=== PATIENT | male | born 1980 | race Caucasian/White ===

== ENCOUNTER 2021-09-26 20:00 | Emergency (ER) | payer SELFPAY ==
--- NOTE | 2021-09-26 20:58 | PC.NURSE ---
pt LWBS [id number]
== END 2021-09-26 20:46 | disposition left against medical advice (07) ==
LOC: CHSED 09-27 10:33
PROVIDERS: Emergency Provider Emergency Medicine; PCP Family Medicine
DX: Z04.9 Encounter for examination and observation for unspecified reason (principal)
CPT/HCPCS: 99199

== ENCOUNTER 2022-04-12 09:10 | Emergency (ER) | payer OTHER, SELFPAY ==
--- NOTE | ~2022-04-12 | XR_ITS ---
EXAMINATION: XR chest 2V DATE: 04/12/2022 09:41 INDICATION: Left chest pain. TECHNIQUE: Frontal and lateral views of the chest were obtained. COMPARISON: CT abdomen and pelvis 07/03/2017 FINDINGS: The chest demonstrates clear lungs without pneumonia, pleural effusion, or pneumothorax. Th e heart size is normal. IMPRESSION: 1. No acute cardiopulmonary disease. Reviewed, dictated and finalized at location A. 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
[2022-04-12 09:10] VITALS: PULSE 66
[2022-04-12 09:12] VITALS: BP 120/81; PULSE 66; RESP 18; TEMP 36.8; O2SAT 99
--- NOTE | 2022-04-12 09:25 | ECG_ITS ---
Measurements Intervals [place] Rate: 62 P: 81 [place]: 156 QRS: 93 QRSD: 93 T: 71 QT: 374 QTc: 382 Interpretive Statements SINUS RHYTHM RIGHT AXIS DEVIATION BORDERLINE ECG NO PREVIOUS ECG AVAILABLE FOR COMPARISON Electronically Signed On 04-12-2022 13:17:12 COMPUTER TRAINING SPECIALIST by Jose Guadalupe Johnson D.O.
--- NOTE | 2022-04-12 09:38 | ED.CHESTPAIN ---
HPI - Chest Pain General Chief Complaint: Chest Pain Stated Complaint: chest pain Time Seen by Provider: 04/12/22 09:14 History of Present Illness HPI narrative: This is a 41-year-old male who denies past medical history, presenting to the emergency department complaining of 1-1/2 days worth of sharp, left-sided chest pain. The pain is described as a sharp twinge lasting 1 to 2 seconds and resolving completely on its own. He states that it is always just below the left nipple and does not radiate. He denies associated nausea, shortness of breath or lightheadedness. Related Data Home Medications Medication Instructions Recorded Confirmed No Home Medications 04/12/22 04/12/22 Allergies Allergy/AdvReac Type Severity Reaction Status Date / Time No Known Allergies Allergy Verified 04/12/22 09:54 Review of Systems Review of Systems: CONSTITUTIONAL: Denies fever, chills, or sweats. CARDIOVASCULAR: Left-sided chest pain denies palpitations, or edema. RESPIRATORY: Denies cough or dyspnea. GASTROINTESTINAL: Denies abdominal pain, nausea, vomiting, or diarrhea. GENITOURINARY: Denies dysuria or hematuria. SKIN: Denies rash or itching. MUSCULOSKELETAL: Denies back pain, joint pain, or myalgia. NEUROLOGIC: Denies headache, numbness, dizziness, or weakness. PSYCHIATRIC: Denies anxiety or depression. [facility] Social History Social History (Updated 04/12/22 @ 11:10 by Juan A Armas MD) Smoking status: Never smoker Alcohol intake: never Substance use: never Exam Narrative: GENERAL: Well-developed, well-nourished, and in no acute distress. HEAD: Normocephalic, atraumatic. EYES: PERRLA and EOMI. ENT: Nares clear, no rhinorrhea or epistaxis. Mucous membranes moist. Bilateral TMs pearly irvin nonbulging CHEST: Clear to auscultation. No respiratory distress. No wheezes rales or rhonchi. No tenderness to palpation of the anterior chest wall. HEART: Regular rate and rhythm. No murmur heard. Normal peripheral pulses. ABDOMEN: Soft, nontender, nondistended, normal active bowel sounds. EXTREMITIES: Normal range of motion. No edema. SKIN: Warm, dry, no rash. NEURO: No focal deficits. Alert and oriented x3. PSYCH: Normal mood and affect. Course Course Emergency Course: 10:43 - HEART score 0. EKG not concerning for ischemic changes. Troponin negative. I suspect a musculoskeletal cause for the patient's pain. Discussed findings and recommendations for management with NSAIDs. Discussed return emergency precautions including signs/symptoms of ACS and respiratory distress. The patient voiced understanding and is comfortable with plan. All questions answered to his satisfaction Vital Signs Vital signs: Vital Signs Pulse Rate 66 04/12/22 09:10 Oxygen Delivery Room Air 04/12/22 09:10 Temperature 98.1 F 04/12/22 10:49 Pulse Rate 66 04/12/22 10:49 Respiratory Rate 18 04/12/22 10:49 Blood Pressure 122/82 04/12/22 10:49 Pulse Oximetry 99 04/12/22 10:49 Oxygen Delivery Room Air 04/12/22 10:49 MDM - Chest Pain MDM Narrative Medical decision making narrative: Plan: Labs, imaging, EKG, reassess Differential Diagnosis Differential diagnosis: Likely atypical chest pain, costochondritis and other (ACS, pleurisy, other) Lab Data Labs: Lab Results 04/12/22 Range/Units 09:44 Troponin I < 4.0 (0.00-60.4) ng/L ECG Data EKG #1: Attestation: I personally reviewed and interpreted this ECG as follows: ECG completion date: 04/12/22 ECG completion time: 10:08 Prior ECG tracings: not available for review Interpretation: Sinus rhythm, rate 62, normal axis, no ST segment elevations or T wave inversions concerning for ischemia, normal intervals with QTc of 308. Discharge Plan Discharge Clinical Impression: Atypical chest pain Patient Disposition: Home, Self-Care Condition: Stable Instructions: Antibiotic Form, Chest Wall Pain (ED) Add
--- NOTE | 2022-04-12 10:14 | PC.NURSE ---
PT IS SITTING ON STRETCHER VSS. NAD NOTED. PT DENIES ANY COMPLAINTS AT THIS TIME. PT IS AWAITING RESULTS. WILL CONTINUE TO MONITOR.
[2022-04-12 10:24] LABS: Troponin I < 4.0 ng/L (0.00-60.4)
[2022-04-12 10:49] VITALS: BP 122/82; PULSE 66; RESP 18; TEMP 36.7; O2SAT 99
== END 2022-04-12 11:00 | disposition home or self-care (01) ==
PROVIDERS: Emergency Provider Preventive Medicine Aerospace Medicine; PCP Family Medicine
DX: R07.89 Other chest pain (principal)
CPT/HCPCS: 36415; 71046; 84484; 93005; 99283

== ENCOUNTER 2022-06-11 23:55 | Emergency (ER) | payer OTHER, SELFPAY ==
--- NOTE | ~2022-06-11 | XR_ITS ---
EXAMINATION: XR chest 1V portable DATE: 06/12/2022 00:35 INDICATION: Chest pain. Cough. TECHNIQUE: A single frontal view of the chest was obtained. COMPARISON: Chest 2 views 04/12/2022 FINDINGS: There is no pneumonia, pleural effusion, or pneumothorax. The heart size is normal. IMPRESSION: 1. No acute cardiopulmonary disease. Reviewed, dictated and finalized at location A.
[2022-06-11 23:57] VITALS: BP 135/85; PULSE 67; RESP 20; TEMP 36.4; O2SAT 100
--- NOTE | 2022-06-12 00:03 | ECG_ITS ---
Measurements Intervals [place] Rate: 65 P: 74 CT: 153 QRS: 83 QRSD: 91 T: 66 QT: 356 QTc: 371 Interpretive Statements SINUS RHYTHM INCOMPLETE RIGHT BUNDLE BRANCH BLOCK BASELINE ARTIFACT- II, AVR, AVL, AVF, V1-V6 BORDERLINE ECG COMPARED TO ECG 04/12/2022 10:08:01 NO SIGNIFICANT CHANGES Electronically Signed On 06-12-2022 8:04:20 CDT by Jose Guadalupe Johnson D.O.
[2022-06-12 00:05] VITALS: RESP 20; O2SAT 95
--- NOTE | 2022-06-12 00:20 | ED.GENADULT ---
HPI - General Adult General Chief complaint: Unspecified Stated complaint: tooth pain History of Present Illness HPI narrative: this is a 41-year-old male presenting to the ED with a chief complaint of tooth pain. Patient was scheduled to have several teeth pulled last week. His appointment was pushed back until next week. Yesterday he started develop pain underneath his lower incisors. He has had pain like this before and has been treated with antibiotics. Then earlier today he developed a cough and burning chest pain that went from his throat down the center of his chest. Pain is associated with his cough, 2/ 10 intensity and constant. Says he has felt like this before right before he gets sick. There is no alleviating or exacerbating symptoms. He has not taken any medication prior to arrival. He denies fever chills, nausea, vomiting, shortness of breath, diarrhea,or abdominal pain. Related Data Allergies Allergy/AdvReac Type Severity Reaction Status Date / Time No Known Allergies Allergy Verified 06/12/22 00:08 [facility] Social History Social History (Updated 04/12/22 @ 11:10 by Juan A Armas MD) Smoking status: Never smoker Alcohol intake: never Substance use: never Exam Narrative: APPEARANCE: No apparent distress. Head: Patient has poor dentition multiple severely decayed teeth. No evidence of abscess. No evidence of potential infection. Floor of the mouth is soft. EYES: EOMI, NOSE: Atraumatic NECK: Trachea midline RESPIRATORY: No increased rate of breathing , scattered wheezing CARDIOVASCULAR: RRR, no peripheral edema ABDOMINAL: Non-distended, soft nontender no guarding rebound MUSCULOSKELETAl: No obvious deformities NEURO: Alert. Moving 4/4 extremities SKIN:: Warm, dry. Normal color PSYCHIATRIC: Normal affect Course Vital Signs Vital signs: Vital Signs Temperature 97.6 F 06/11/22 23:57 Pulse Rate 67 06/11/22 23:57 Respiratory Rate 20 06/11/22 23:57 Blood Pressure 135/85 06/11/22 23:57 Pulse Oximetry 100 06/11/22 23:57 Temperature 97.6 F 06/11/22 23:57 Pulse Rate 67 06/11/22 23:57 Respiratory Rate 20 06/12/22 00:05 Blood Pressure 135/85 06/11/22 23:57 Pulse Oximetry 95 06/12/22 00:05 Medical Decision Making [facility] Narrative Medical decision making narrative: -Presentation: 41-year-old male with poor dentition presenting with 2 complaints: tooth pain and cough/burning chest discomfort cough and wheezing. I don't believe these complaints are related. Patient has very poor dentition but there is no sign of active infection/abscess on exam. Viral/strep swabs, chest xray, ekg and labwork ordered. Patient given Motrin, Tylenol, and breathing treatment. -DDX includes but is not limited to: Dental pain, dental infection / URI, bronchitis, pneumonia, -Co-morbidities complicating care: Poor dentition, chronic smoker -Social determinants of health: patient works for the [employer] and lives with his . -External Chart Review: review an ER visit last month for chest pain -Independent interpretation of studies: Independent EKG interpretation: Rhythm [sinus], Rate [65], [place] -[normal], [place] -[normal], QRS [narrow], QTC [normal], T waves -[negative for concerning inversions], ST Segments - [Negative for concerning elevations] Final interpretations: [Normal Sinus Rhythm] chest x-ray showed no acute cardiopulmonary process. Laboratory studies were within acceptable limits. HS Trop 4.7. chest pain started > 3 hrs prior to arrival. no rpt neccessary. Heart score 0 -Interventions: DuoNeb treatment, Motrin, Tylenol -Shared decision making / Disposition: Upon re-evaluation patient is resting comfortably. States his condition improved after the duonebs. He is comfortable being discharged home on Augmentin for his dental pain and following up with his dentist/PCP as needed. -RX Augmentin, Motrin, Tylenol, albuterol inhaler Vital Signs
[2022-06-12 00:49] LABS: Basophils Absolute Auto 0.08 K/mm3 (0.00-0.10); Basophils Percent Auto 0.8 % (0.0-1.0); Eosinophils Absolute Auto 0.24 K/mm3 (0.02-0.50); Eosinophils Percent Auto 2.5 % (1.0-6.0); Hemoglobin 15.9 g/dL (14.0-18.0); Immature Granulocyte Absolute 0.03 K/mm3 (0.00-0.00); Immature Granulocyte Percent A 0.3 % (0.0-0.0); Lymphocytes Absolute Auto 2.66 K/mm3 (1.10-4.50); Mean Corpuscular HGB Conc 33.8 g/dL (32.0-36.0); Mean Corpuscular Hemoglobin 30.8 pg (27.0-31.0); Mean Corpuscular Volume 90.9 fL (78.0-102.0); Mean Platelet Volume 9.6 fl (8.7-11.0); Monocytes Absolute Auto 0.61 K/mm3 (0.10-0.90); Monocytes Percent Auto 6.4 % (2.0-11.0); Neutrophils Absolute Auto 5.9 K/mm3 (1.7-7.2); Platelet Count Result 204 K/mm3 (150-420); Red Blood Count 5.17 M/mm3 (4.70-6.10); Red Cell Distribution Width 12.9 % (11.6-14.4); White Blood Count 9.5 K/mm3 (4.8-10.8)
[2022-06-12] MEDS: IPRATROPIUM 0.5 MG/ALBUTEROL SULFATE 2.5 MG AMPUL.NEB 3 ML 6 ML INHALATION (00:53)
[2022-06-12 00:54] VITALS: PULSE 58; RESP 16; O2SAT 96
[2022-06-12 00:58] VITALS: PULSE 63; RESP 16; O2SAT 96
[2022-06-12 01:06] LABS: Anion Gap 8 mmol/L (8-16); Blood Urea Nitrogen 17 mg/dL (7-18); Calcium 8.7 mg/dL (8.5-10.1); Carbon Dioxide 30 mmol/L (21-32); Chloride 104 mmol/L (98-108); Estimated CRCL calculation 73 ml/min; Estimated Glomerular Filt Rate > 60; Glucose 96 mg/dL (70-99); Osmolality Calculated 295 mOsm/kg (285-295); Potassium 3.8 mmol/L (3.5-5.1); Sodium 142 mmol/L (136-145); Troponin I 4.7 ng/L (0.00-60.4)
[2022-06-12 01:22] LABS: Strep Group A RT-PCR NOT DETECTED (Negative)
[2022-06-12 01:29] LABS: Influenza A QL RT-PCR Negative (Negative); Influenza B QL RT-PCR Negative (Negative); RSV RNA, RT-PCR Negative (Negative); SARS-CoV-2 RNA PCR Negative (Negative)
[2022-06-12 01:47] VITALS: BP 121/81; PULSE 88; RESP 20; TEMP 36.7; O2SAT 99
== END 2022-06-12 01:48 | disposition home or self-care (01) ==
PROVIDERS: Emergency Provider Emergency Medicine; PCP Family Medicine
DX: K02.9 Dental caries, unspecified (principal); J40 Bronchitis, not specified as acute or chronic; Z20.822 Contact with and (suspected) exposure to COVID-19
CPT/HCPCS: 36415; 71045; 80048; 84484; 85025; 87637; 87651; 93005; 94640; 99284

== ENCOUNTER 2022-06-12 17:12 | Emergency (ER) | payer OTHER, SELFPAY ==
[2022-06-12 17:15] VITALS: BP 136/89; PULSE 91; RESP 16; TEMP 36.6; O2SAT 99
--- NOTE | 2022-06-12 17:24 | ED.GENADULT ---
HPI - General Adult General Chief complaint: Upper Respiratory Infection Stated complaint: fever, throat pain, burning in chest Time Seen by Provider: 06/12/22 17:16 History of Present Illness HPI narrative: Roberto is a 41M with a PMH of of dental caries that is returning to the ED with continued symptoms. He was discharged earlier today with script for Augmentin for dental caries and was diagnosed with bronchitis. He went to take his first dose of Augmentin just before coming but had trouble swallowing the pill. He continued to have some burning in his chest and a cough and thought he spiked a fever up to 102, however it is normal here. He denies any pressure type chest pain or dyspnea. Related Data Allergies Allergy/AdvReac Type Severity Reaction Status Date / Time No Known Allergies Allergy Verified 06/12/22 17:30 Review of Systems Review of Systems: All systems reviewed & are unremarkable except as noted in HPI and below PMFSH Social History Social History Smoking status: Never smoker Alcohol intake: never Substance use: never Exam Const: General: healthy appearing and no acute distress Nutritional Appearance: well nourished Orientation/consciousness: patient oriented x3 HENMT: Head: normal to inspection Ears: external ears normal Face/Nose/Sinus: Normal external nose present Eyes: Conjunctivae: conjunctivae normal Pupils: Equal, round and reactive pupils present Neck: Neck: normal visual inspection Chest: Chest palpation & inspection: normal inspection of the chest Resp: Effort & Inspection: normal respiratory effort Auscultation: clear to auscultation bilaterally Cardio: Rate: regular rate Rhythm: regular rhythm Skin: General skin exam: normal color Rashes: no rashes Wounds: no wounds Neuro: General: patient oriented x3 and moves all extremities Cranial nerves: Yes Nystagmus not present Speech: normal speech Extrem: General: normal to inspection Psych: Mental Status: mental status grossly normal Course Course Emergency Course: We discussed the course of bronchitis and how he may have fevers, chills and multiple weeks of cough and reiterated that he must take the meds he was given earlier. Vital Signs Vital signs: Vital Signs Temperature 97.9 F 06/12/22 17:15 Pulse Rate 91 06/12/22 17:15 Respiratory Rate 16 06/12/22 17:15 Blood Pressure 136/89 06/12/22 17:15 Pulse Oximetry 99 06/12/22 17:15 Oxygen Delivery Room Air 06/12/22 17:15 Temperature 97.9 F 06/12/22 17:15 Pulse Rate 91 06/12/22 17:15 Respiratory Rate 16 06/12/22 17:15 Blood Pressure 136/89 06/12/22 17:15 Pulse Oximetry 99 06/12/22 17:15 Oxygen Delivery Room Air 06/12/22 17:15 Medical Decision Making Vital Signs Vital Signs: Vital Signs Temperature 97.9 F 06/12/22 17:15 Pulse Rate 91 06/12/22 17:15 Respiratory Rate 16 06/12/22 17:15 Blood Pressure 136/89 06/12/22 17:15 Pulse Oximetry 99 06/12/22 17:15 Oxygen Delivery Room Air 06/12/22 17:15 Temperature 97.9 F 06/12/22 17:15 Pulse Rate 91 06/12/22 17:15 Respiratory Rate 16 06/12/22 17:15 Blood Pressure 136/89 06/12/22 17:15 Pulse Oximetry 99 06/12/22 17:15 Oxygen Delivery Room Air 06/12/22 17:15 Discharge Plan Discharge Clinical Impression: Dental caries, Bronchitis Patient Disposition: Home, Self-Care Condition: Stable Instructions: Antibiotic Form Additional Instructions: Please take the previous antibiotics you were prescribed as directed. Prescriptions: No Action acetaminophen 500 mg tablet 1,000 mg PO TID PRN (Reason: ronan) 7 Days Qty: 42 0RF amoxicillin-pot clavulanate 875-125 mg tablet 1 tablet PO Q12H Qty: 20 0RF ibuprofen 800 mg tablet 800 mg PO TID PRN (Reason: pain) 7 Days Qty: 21 0RF albuterol sulfate 90 mcg/actuation HFA aerosol inhaler 1 inh inhalation QI
== END 2022-06-12 17:47 | disposition home or self-care (01) ==
PROVIDERS: Emergency Provider Family Medicine; PCP Family Medicine
DX: K02.9 Dental caries, unspecified (principal); J40 Bronchitis, not specified as acute or chronic
CPT/HCPCS: 99281

== ENCOUNTER 2022-08-23 11:37 | Outpatient (CLI) | payer OTHER, SELFPAY ==
--- NOTE | ~2022-08-23 | CT_ITS ---
Non-contrast CT scan of the Abdomen and Pelvis Clinical indication: Abdominal pain Technique: 2.5 mm axial scans were obtained through the abdomen and pelvis without intravenous or or al contrast. Dose reduction technique was used on this scan by utilizing automated exposure control a nd iterative reconstruction technique. The dose-length product (DLP) was 253.19 mGy-cm. COMPARISON: 07/03/2017 Findings: Images through the lung bases reveal no abnormalities. There is no evidence of renal or ureteral calculi. The kidneys and the ureters are nondilated. The liver, spleen, pancreas, gallbladder, and adrenals appear normal. There is no aortic aneurysm. There is no evidence of bowel obstruction. Normal appendix. Images through the pelvis were performed. There is no evidence of ascites or lymphadenopathy. Urinary bladder unremarkable. Prostate gland and seminal vesicles are unremarkable. Impression: No significant abnormality seen. Reviewed, dictated and finalized at [facility]. Impression: No significant abnormality seen.
== END 2022-08-23 11:38 | disposition home or self-care (01) ==
PROVIDERS: PCP Family Medicine; Visit Provider Physician Assistant
DX: R10.31 Right lower quadrant pain (principal)
CPT/HCPCS: 74176

== ENCOUNTER 2022-08-31 10:08 | Outpatient (CLI) | payer OTHER, SELFPAY ==
--- NOTE | ~2022-08-31 | US_ITS ---
US scrotum doppler INDICATION: Right inguinal pain TECHNIQUE: Testicular sonogram utilizing grayscale and color Doppler FINDINGS: The testes are normal in size and appearance. No focal lesions are seen. The right testes measures 3.5 x 2.5 x 2.1 cm centimeters, and the left testis measures 3.7 x 2.5 x 2.2 cm cm. There is normal vascular flow to both testes. The right and left epididymides appear normal. There is no varicocele or hydrocele. IMPRESSION: 1. NORMAL TESTICULAR ULTRASOUND. Reviewed, dictated and finalized at location A.
== END 2022-08-31 10:09 | disposition home or self-care (01) ==
LOC: CHSIMG 10:10
PROVIDERS: PCP Family Medicine; Visit Provider Physician Assistant
DX: N50.819 Testicular pain, unspecified (principal)
CPT/HCPCS: 76870; 93976

== ENCOUNTER 2022-09-28 15:00 | Outpatient (CLI) | payer OTHER, SELFPAY ==
--- NOTE | ~2022-09-28 | CT_ITS ---
EXAMINATION: CT brain wo con INDICATION: Headache COMPARISON: None TECHNIQUE: Standard unenhanced head CT. The dose-length product (DLP) was 605.33 mGy-cm. The mA was a djusted according to patient size. Iterative reconstruction technique was employed. FINDINGS: No intracranial hemorrhage, acute infarction, or abnormal mass lesion. The ventricles are n ormal. No abnormal mass effect or midline shift. The irvin-white matter differentiation is normal. The basal cisterns are patent. The orbits are normal. There are polyps or mucous retention cysts of the left frontal sinus and right maxillary sinus. IMPRESSION: 1. No acute intracranial abnormality. Reviewed, dictated and finalized at location A.
== END 2022-09-28 15:01 | disposition home or self-care (01) ==
PROVIDERS: PCP Family Medicine; Visit Provider Family Medicine
DX: R51.9 Headache, unspecified (principal)
CPT/HCPCS: 70450

== ENCOUNTER 2023-04-01 18:21 | Emergency (ER) | payer OTHER, SELFPAY ==
--- NOTE | ~2023-04-01 | XR_ITS ---
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 chest tightness. Comparison: 06/12/2022. RESULT: Lines, tubes, and devices: None. Lungs and pleura: Clear. Cardiomediastinal silhouette: Stable. Other: No acute osseous or upper abdominal finding. IMPRESSION: No acute cardiopulmonary process. Reviewed, dictated and finalized at location K. TYPE FINISHER
[2023-04-01 18:26] VITALS: BP 131/95; PULSE 75; RESP 20; TEMP 36.9; O2SAT 98
--- NOTE | 2023-04-01 18:56 | ECG_ITS ---
Measurements Intervals [place] Rate: 67 P: 78 [place]: 146 QRS: 91 QRSD: 93 T: 61 QT: 354 QTc: 375 Interpretive Statements SINUS RHYTHM RSR' V1 BORDERLINE ECG COMPARED TO ECG 06/12/2022 00:13:25 NO SIGNIFICANT CHANGES Electronically Signed On 04-02-2023 17:59:18 TRAM INSPECTOR by Harshal Corona M.D.
--- NOTE | 2023-04-01 19:06 | PC.NURSE ---
REPORT TO MADI PRINCE
--- NOTE | 2023-04-01 19:22 | ED.URI ---
HPI - URI/Sore Throat General Chief Complaint: Upper Respiratory Infection Stated Complaint: sore chest; post flu diagnoses Time Seen by Provider: 04/01/23 18:38 Source: patient Mode of arrival: ambulatory Limitations: no limitations History of Present Illness HPI Narrative: Patient is a 43-year-old male with a significant past medical history that presents today for URI symptoms and chest discomfort. Patient states he was diagnosed with influenza a few days ago. He states that he has been feeling worse and feeling like he is coughing up a lot. In the other stuff in his lungs. He is coughing up greenish green yellow sputum. He states that he has been feeling a lot worse. He would like to make sure that there is nothing wrong with his chest. MD elicited complaint: fever, cough and sore throat Pertinent past history: other (influenza) Onset (ago): day(s) Consistency: constant Description of mucous: yellow and green Able to tolerate fluids by mouth: Yes Exacerbating factors: swallowing, speaking and deep breaths Relieving factors: nothing Associated symptoms: chills, myalgias and chest pain Related Data Allergies Allergy/AdvReac Type Severity Reaction Status Date / Time No Known Allergies Allergy Verified 06/12/22 17:30 Review of Systems Review of Systems: All systems reviewed & are unremarkable except as noted in HPI and below Constitutional: Constitutional: Reports no additional constitutional complaints Eyes: Eyes: Reports no additional eye complaints ENT: Reports system reviewed and no additional complaints, except as documented Cardiovascular: Cardiovascular: Reports chest pain Respiratory: Respiratory: Reports no additional respiratory complaints Gastrointestinal: Gastrointestinal: Reports no additional gastrointestinal complaints Genitourinary: Genitourinary: Reports no additional male genitourinary complaints Musculoskeletal: Musculoskeletal: Reports no additional musculoskeletal complaints Integumentary/Breasts: Skin/Breast: Reports system reviewed and no additional complaints, except as docu Neurologic: Reports system reviewed and no additional complaints, except as documented Psychiatric: Psychiatric: Reports no additional psychiatric complaints Endocrine: Endocrine: Reports no additional endocrine complaints Hematologic/Lymphatic: Hematologic/Lymphatic: Reports no additional hematologic/lymphatic complaints Allergic/Immunologic: Allergic/Immunologic: Reports no additional allergic/immunologic complaints PMFSH Social History Social History Smoking status: Never smoker Alcohol intake: never Substance use: never Exam Const: General: healthy appearing Nutritional Appearance: well nourished Orientation/consciousness: patient oriented x3 HENMT: Head: normal to inspection Ears: external ears normal Face/Nose/Sinus: Normal external nose present Face and sinus: normal facial exam Eyes: Conjunctivae: conjunctivae normal Pupils: Equal, round and reactive pupils present EOM: EOMs intact bilaterally Neck: Neck: normal visual inspection Chest: Chest palpation & inspection: normal inspection of the chest Resp: Effort & Inspection: normal respiratory effort Auscultation: clear to auscultation bilaterally Cardio: Rate: regular rate Rhythm: regular rhythm GI: GI Palp: Yes Soft to palpation Auscultation: normal bowel sounds Back/Spine/Pelvis: Back: no CVA tenderness Skin: General skin exam: normal color Rashes: no rashes Wounds: no wounds Neuro: General: patient oriented x3 Cranial nerves: Yes Nystagmus not present Speech: normal speech Extrem: General: normal to inspection Psych: Mental Status: mental status grossly normal Course Vital Signs Vital signs: Vital Signs Temperature 98.5 F 04/01/23 18:26 Pulse Rate 75 04/01/23 18:26 Respiratory Rate 20 04/01/23 18:26 Blood Pressure 131/95 H 04/01/23 18:
[2023-04-01 19:36] VITALS: BP 122/82; PULSE 84; RESP 18; TEMP 37.1; O2SAT 98
== END 2023-04-01 19:37 | disposition home or self-care (01) ==
PROVIDERS: Emergency Provider Family Medicine; PCP Family Medicine
DX: J11.1 Influenza due to unidentified influenza virus with other respiratory manifestations (principal); J18.9 Pneumonia, unspecified organism
CPT/HCPCS: 71045; 93005; 99283

== ENCOUNTER 2024-06-18 22:35 | Emergency (ER) | payer SELFPAY ==
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
[2024-06-18 22:37] VITALS: BP 139/96; PULSE 74; RESP 14; TEMP 37; O2SAT 100
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
--- OUTSIDE RECORDS SUMMARY | 2024-06-18 22:38 | XMS_ITS | Clinical Summary ---
Author Organization [facility] Address [address] [place] [address] Care Team Providers Care Oxyhydrogen Welder Name Role Phone Leon Reynaga MD Primary Care Provider [phone] Allergies No known active allergies Medications No known medications Active Problems No known active problems Family History Medical History Relation Comments pulmonary emboli Brother Emphysema Father Diabetes Mother Relation Status Comments Brother Father Mother Social History Tobacco Use Types Packs/Day Years Used Date Smoking Tobacco: Every Day Cigarettes Smokeless Tobacco: Never Alcohol Use Standard Drinks/Week Comments Not Currently 0 (1 standard drink = 0.6 oz pur e alcohol) Sex and Gender Information Value Date Recorded Sex Assigned at Not on file 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 Gender Identity Not on file Sexual Orientation Not on file Last Filed Vital Signs Vital Sign Reading Time Taken Comments Blood Pressure 124/86 11/28/2023 8:30 PM CDT Pulse 73 11/28/2023 8:17 PM CDT Temperature 36.7 C (98.1 F) 11/28/2023 8:18 PM CDT Respiratory Rate 16 11/28/2023 8:17 PM CDT Oxygen Saturation 96% 11/28/2023 9:45 PM CDT Inhaled Oxygen Concentration - - Weight 70.3 kg (155 lb) 11/28/2023 8:16 PM CDT Height 172.7 cm (5' 8 ) 11/28/2023 8:16 PM CDT Body Mass Index 23.57 11/28/2023 8:16 PM CDT Plan of Treatment Health Maintenance Due Date Last Done Comments Annual Physical 10/04/1983 Hepatitis C 1998 Hepatitis B Vaccines (1 of 3 - 19+ 3-dose series) 10/04/1999 Pneumococcal Vaccine: Pediat rics (0 to 5 Years) and At-Risk Patients (6 to 49 Years) (1 of 2 - PCV) 10/04/1999 COVID-19 Vaccine (1 - 2023-2 5 season) 2023 DTaP, Tdap and Td Vaccines ( 2 - Td or Tdap) 03/14/2029 03/14/2019 HPV Vaccines Aged Out No longer eligi ble based on patient's age to complete this topic Meningococcal B Vaccine Aged Out No l onger eligible based on patient's age to complete this topic Meningococcal Vaccine Aged Out No dutch chirag eligible based on patient's age to complete this topic RSV Immunizations Under 20 Months Aged Out No longer eligible based on patient's age to complete this topic Insurance [facility] Care Teams Oxyhydrogen Welder Relationship Specialty Start Date End Date Leon Reynaga MD [address] [place] [phone] PCP - General FAMILY PRACTICE 09/10/19
--- OUTSIDE RECORDS SUMMARY | 2024-06-18 22:38 | XMS_ITS | Encounter Summary ---
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 Gender Identity Not on file Sexual Orientation Not on file documented as of this encounter Plan of Treatment Not on file documented as of this encounter Visit Diagnoses Not on filedocumented in this encounter Additional Health Concerns Infection Onset Date Last Indicated Resolved Time COVID-19 Rule Out 01/02/2020 01/02/2020 01/02/2020 6:28 PM MINIATURE SET CONSTRUCTOR COVID-19 Rule Out 01/02/2020 01/02/2020 01/03/2020 4:15 PM MINIATURE SET CONSTRUCTOR documented as of this encounter Care Teams Felt Carbonizer Relationship Specialty Start Date End Date Leon Reynaga MD [address] [place] [address] PCP - General FAMILY PRACTICE 09/10/19 documented as of this encounter
--- OUTSIDE RECORDS SUMMARY | 2024-06-18 22:38 | XMS_ITS | Clinical Summary ---
Author Organization [facility] Address [address] [facility] [address] [place] [address] Phone Care Team Providers Care Earthmoving Plant Operator Name Role Phone Sivan Castellanos NP Primary Care Provider [phone] Allergies No known active allergies Medications LORazepam (ATIVAN) 0.5 mg tablet Take 1 tablet (0.5 mg total) by mouth once for 1 dose Take one tablet 30 minutes prior to procedure, if needed can take the second tablet for a total of 1 mg 2 tablet 06/30/2023 Active cetirizine (ZyrTEC) 10 mg tablet Take 1 tablet (10 mg total) by mouth daily 30 tablet 07/08/2023 Active Active Problems No known active problems Immunizations Immunization Administration Dates Next Due Influenza, Quadrivalent, Spl it, Intramuscular 12/11/2019,03/14/2019 Influenza, Unspecified 10/17/2022(Deferr ed: Patient Refused),02/06/2022(Deferred: Patient Refused),02/06/2021(Deferred: Patient Refused) Tdap 03/14/2019 Medical History Medical History Date Comments Kidney stone [id number] Family History Medical History Relation Name Comments Arthritis Father Tony noeain Asthma Father Tony alejandro Cancer Father Tony alejandro Diabetes Father Tony alejandro Asthma Mother Cynthiakeyona noeain Diabetes Mother Cynthia noeain Relation Name Status Comments Father Tony noeain Mother Cynthia allen Social History Tobacco Use Types Packs/Day Years Used Date Smoking Tobacco: Every Day Cigarettes 0.8 15.1 Passive Smoke Exposure: Current Smokeless Tobacco: Never Tobacco Cessation:Ready to Q uit: Not Asked; Counseling Given: Not Answered PHQ-2 Answer Date Recorded PHQ-2 Total Score (If total score is 3 or more points, staff should administer the PHQ-9) 0 06/15/2023 Sex and Gender Information Value Date Recorded Sex Assigned at Not on file Legal Sex Male 4:04 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 Gender Identity Not on file Sexual Orientation Not on file Obstetrics History Last Filed Vital Signs Vital Sign Reading Time Taken Comments Blood Pressure 111/74 06/29/2023 8:47 AM CDT Pulse 54 06/29/2023 8:47 AM CDT Temperature 36.5 C (97.7 F) 06/29/2023 8:47 AM CDT Respiratory Rate 16 06/29/2023 8:47 AM CDT Oxygen Saturation 96% 06/29/2023 8:47 AM CDT Inhaled Oxygen Concentration - - Weight 68.9 kg (152 lb) 06/29/2023 8:47 AM CDT Height 172.7 cm (5' 8 ) 06/29/2023 8:47 AM CDT Body Mass Index 23.11 06/29/2023 8:47 AM CDT Plan of Treatment Health Maintenance Due Date Last Done Comments Hepatitis C Screening 1980 Varicella Vaccines (1 of 2 - 13+ 2-dose series) 1993 Hepatitis B Screening 1998 Regular Well Visit/Exam 18-64 1998 Pneumococcal vaccine <65 (1 of 2 - PCV) 10/04/1999 Depression Screening 06/14/2024 06/15/2023, 02/02/2023, 10/17/2022 Influenza Vaccine (Season Ended) 2024 12/11/2019, 03/14/2019 DTaP/Tdap/Td Vaccine (2 - Td or Tdap) 03/14/2029 03/14/2019 HPV Vaccines Aged Out No longer eligi ble based on patient's age to complete this topic Insurance [facility] Care Teams Earthmoving Plant Operator Relationship Specialty Start Date End Date Sivan Castellanos NP [address] [address] PCP - General Family Medicine 10/17/22
--- OUTSIDE RECORDS SUMMARY | 2024-06-18 22:38 | XMS_ITS | Referral Summary ---
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
--- OUTSIDE RECORDS SUMMARY | 2024-06-18 23:00 | XMS_ITS | Clinical Summary ---
Author Organization [facility] Address [address] [place] [address] Care Team Providers Care Tooth Cutter Clutch Name Role Phone Leon Reynaga MD Primary Care Provider [phone] Allergies No known active allergies Medications No [...] on file Legal Sex Male 5:53 PM ORAL SURGERY TECHNICIAN Gender Identity Not on file Sexual Orientation [...] patient's age to complete this topic Insurance [facility] Care Teams Tooth Cutter Clutch Relationship Specialty Start Date End Date Leon Reynaga MD [address] [place] [phone] PCP - General FAMILY PRACTICE 09/10/19
--- OUTSIDE RECORDS SUMMARY | 2024-06-18 23:00 | XMS_ITS | Referral Summary ---
Author Organization [facility] Address [address] [facility] [address] [place] [address] Phone Care Team Providers Care Hospital Cleaner Name Role Phone Sivan Castellanos NP Primary Care Provider [phone] Allergies No known active allergies Medications LORazepam [...] on file Legal Sex Male 4:04 PM VEHICLE MODIFICATION TECHNICIAN Gender Identity Not on file Sexual [...] Plan of Treatment Not on file Insurance [facility] HMO/PPO Address: [address] [phone] [facility] H[facility]/PPO Address: [facility] [address] [place] [address] Care Teams Hospital Cleaner Relationship Specialty Start Date End Date Sivan Castellanos NP [address] [address] PCP - General Family Medicine 10/17/22
--- OUTSIDE RECORDS SUMMARY | 2024-06-18 23:00 | XMS_ITS | Encounter Summary ---
Author Organization [facility] Address [address] [place] [address] Care Team Providers Care Performance Test Architect Name Role Phone Leon Reynaga MD Primary Care Provider Encounter Details Date Type Department Care Team (Late st Contact Info) Description 07/14/2018 Abstract [facility]FL CONVERSION [address] [address] , Generic Conversion, Social History Tobacco Use Types Packs/Day Years Used Date Smoking Tobacco: Never Assessed Sex and Gender Information Value Date Recorded Sex Assigned at Not on file Legal Sex Male 5:53 PM PROPULSION GENERATOR REPAIRER Gender Identity Not on file Sexual Orientation Not on file documented as of this encounter Plan of Treatment Not on file documented as of this encounter Visit Diagnoses Not on filedocumented in this encounter Additional Health Concerns Infection Onset Date Last Indicated Resolved Time COVID-19 Rule Out 01/02/2020 01/02/2020 01/02/2020 6:28 PM PROPULSION GENERATOR REPAIRER COVID-19 Rule Out 01/02/2020 01/02/2020 01/03/2020 4:15 PM PROPULSION GENERATOR REPAIRER documented as of this encounter Care Teams Performance Test Architect Relationship Specialty Start Date End Date Leon Reynaga MD [address] [place] [address] PCP - General FAMILY PRACTICE 09/10/19 documented as of this encounter
--- OUTSIDE RECORDS SUMMARY | 2024-06-18 23:00 | XMS_ITS | Clinical Summary ---
Author Organization [facility] Address [address] [facility] [address] [place] [address] Phone Care Team Providers Care Sales Porter Name Role Phone Sivan Castellanos NP Primary Care Provider [phone] Allergies No known active allergies Medications LORazepam [...] History Medical History Date Comments Kidney stone [id number] Family History Medical History Relation Name Comments [...] on file Legal Sex Male 4:04 PM [employer] Gender Identity Not on file Sexual Orientation [...] patient's age to complete this topic Insurance [facility] [address] [facility] [address] Care Teams Sales Porter Relationship Specialty Start Date End Date Sivan Castellanos NP [address] [address] PCP - General Family Medicine 10/17/22
--- NOTE | 2024-06-18 23:52 | PC.NURSE ---
DR VILLALPANDO AT THE BEDSIDE. DR VILLALPANDO EXPLAINING RISKS AND BENEFITS OF WEARING RIGID COLLAR DUE TO CT FINDINGS. PATIENT CURRENTLY NOT WANTING RIGID COLLAR IN PLACE.
--- NOTE | 2024-06-18 23:58 | PC.NURSE ---
RIGID COLLAR PLACED. PATIENT VERBALIZED UNDERSTANDING FOR REASON BY WEARING RIGID C COLLAR
--- NOTE | 2024-06-19 00:39 | PC.NURSE ---
[facility] and said that the Hospitalist will be calling back a little later,do to the high influx in patients in the ER
--- NOTE | 2024-06-19 01:20 | PC.NURSE ---
Patient refused to put on a gown prior to transfer
== END 2024-06-19 01:33 | disposition short-term general hospital (02) ==
PROVIDERS: Emergency Provider Emergency Medicine; PCP Family Medicine
DX: S02.113A Unspecified occipital condyle fracture, initial encounter for closed fracture (principal); V86.06XA Driver of dirt bike or motor/cross bike injured in traffic accident, initial encounter
CPT/HCPCS: 72040; 99285; L0150